=== PATIENT | male | born 1970 | race Caucasian/White ===

== ENCOUNTER 2017-05-17 10:13 | Day surgery (SDC) | payer MEDICARE, MEDICAID ==
--- NOTE | 2017-05-17 06:07 | History and Physical Report ---
DATE: 05/16/2017. CHIEF COMPLAINT AND HISTORY OF CHIEF COMPLAINT: This is a patient with a history of postlaminectomy radiculitis. He has a spinal opioid infusion system infusing hydromorphone, baclofen, and bupivacaine. Over the last refill and programmings he was identified as having battery depletion. He is here for pump battery change without infusion parameter change. PAST MEDICAL HISTORY: Noncontributory. PAST SURGICAL HISTORY: Multiple spinal surgeries. MEDICATIONS ON ADMISSION: To be provided. ALLERGIES: None. SOCIAL HISTORY: Caffeine. FAMILY HISTORY: Noncontributory. REVIEW OF SYSTEMS: The patient seems appropriate and in no acute distress. The remainder of the systems review shows glasses, degenerative arthritis. PHYSICAL EXAMINATION: General: Height is 6 feet, 1 inch. Weight is 160. Vital Signs: Unavailable. HEENT: Within normal limits. Lungs: Clear. Heart: Regular rate and rhythm. Abdomen: Nontender. Musculoskeletal: Examination of the musculoskeletal system shows the pump at the right posterior gluteal margin. The incisional site is intact. The incision for the catheter is intact. There appears to be no breakdown of the skin. Chronic pain is bilateral lower extremity radicular. Motor and sensory field evaluation shows sensory field abnormalities as well as strength abnormalities. Ambulation: No assistive device utilized. Neurologic: Cranial nerves are intact. IMPRESSION: 1. POSTLUMBAR LAMINECTOMY SYNDROME, ICD-10 CODE M96.1. 2. LUMBAR RADICULITIS, ICD-10 CODE M54.16 AND M54.17. 3. IMPLANTED SPINAL INFUSION SYSTEM WITH HYDROMORPHONE, BACLOFEN, AND BUPIVACAINE WITH BATTERY DEPLETION. PLAN: The patient is here on an outpatient basis for battery replacement. The procedure will not require an overnight stay. No changes to his infusion characteristics will be made. All of the potential risks, side effects, and complications have been reviewed and discussed. JOB NUMBER: [id number] cc: Primary Care Physician KEVIN
[~2017-05-17 10:13] MED LIST: ACETAMINOPHEN 1,000 MG/100 ML BTL IV ONE; BACLOFEN IV ONE; BUPIVACAINE HCL IV ONE; CEFAZOLIN 2 Gram 2 GM/50 ML BAG IVPB ONE; FAMOTIDINE 20MG TABLET PO ONE; HYDROMORPHONE HCL IV ONE; HYDROMORPHONE HCL/PF 0.002 MG in 0.9 % SODIUM CHLORIDE 10ML VIA 0.998 ML IVP ONE; MECLIZINE 25 MG TABLET PO ONE; METOCLOPRAMIDE 10 MG TABLET PO ONE; [UNRECOGNIZED DRUG - OTHER] IV ONE
[2017-05-17] MEDS ORDERED: PROPOFOL 10 MG/ML VIAL IV ONE (10:14)
[2017-05-17] MEDS ORDERED: LIDOCAINE 1% W/EPI 1:200,000 MPF 30ML SQ ONE (10:14)
[2017-05-17] MEDS ORDERED: FENTANYL PF 100MCG/2ML VIAL IV ONE (10:14)
[2017-05-17] MEDS ORDERED: LIDOCAINE 2% MDV (20MG/ML) 20ML VIAL IV ONE (10:14)
[2017-05-17] MEDS ORDERED: CEFAZOLIN 1G VIAL IM ONE (10:14)
[2017-05-17] MEDS ORDERED: BUPIVACAINE 0.75% W/EPI MPF 30ML VIAL IVP ONE (10:14)
[2017-05-17] MEDS ORDERED: MIDAZOLAM HCL 2MG/2ML VIAL IV ONE (10:14)
--- NOTE | 2017-05-18 09:52 | Operative Note - Ferro ---
DATE OF SURGERY: 05/17/2017. PREOPERATIVE DIAGNOSIS: 1. POSTLUMBAR LAMINECTOMY SYNDROME, ICD-10 CODE M96.1. 2. LUMBAR RADICULITIS, ICD-10 CODE M54.16 AND M54.17. 3. SPINAL OPIOID INFUSION SYSTEM WITH HYDROMORPHONE, BACLOFEN, AND BUPIVACAINE WITH BATTERY DEPLETION. POSTOPERATIVE DIAGNOSIS: 1. POSTLUMBAR LAMINECTOMY SYNDROME, ICD-10 CODE M96.1. 2. LUMBAR RADICULITIS, ICD-10 CODE M54.16 AND M54.17. 3. SPINAL OPIOID INFUSION SYSTEM WITH HYDROMORPHONE, BACLOFEN, AND BUPIVACAINE WITH BATTERY DEPLETION. OPERATION: 1. Incision, subcutaneous dissection, opening of pouch, and removal and replacement of programmable pump at right posterior gluteal margin. 2. Incision, resection, and revision of spinal catheter at pouch. 3. Interface and revise catheter to the pump. Placement of a curved 24-gauge Fields needle to the access port for the programmable pump. Aspiration and clearing the catheter of opioid and cerebrospinal fluid mixture. 4. Placement of pump into pouch, securing into the fascia with nonabsorbable suture. 5. Diagnostic myelography with radiologic supervision and interpretation confirming catheter functionality and patency. 6. Closure of incision with Vicryl for the fascia and running subcuticular Vicryl for the skin. Dermabond closure. 7. Programming of pump to original parameters with hydromorphone at 9.010 mg per day. SURGEON: Scot Puentes D.O. ANESTHESIA: Local sedation. ANESTHESIA PROVIDER: Bi Cui CRNA. INDICATION: This patient presents with a postlaminectomy radiculitis. A spinal opioid infusion system with hydromorphone, bupivacaine, and baclofen is in place. Over the last refill, battery depletion was identified. He is here for pump battery change. PROCEDURE: Intravenous line, vital sign monitoring, and intravenous sedation. Prepped and draped with sterile technique with the patient prone. The pump pouch at the right posterior gluteal margin was identified. The previous incision was infiltrated and an incision was made. Subcutaneous dissection was conducted to the pump. The pouch was opened. The Dacron sleeve was opened, and the pump was exteriorized and from the indwelling catheter. A series of three or perhaps four kinds in the catheter were identified within the pouch. The proximal portion before the kinks was identified and freed from the scar tissue. A catheter resection was then performed to remove the kinks. A new catheter component was then interfaced to the indwelling catheter by way of a connector. A new pump was placed onto the field prefilled with hydromorphone, bupivacaine, and baclofen at their same original concentrations. The revised catheter was interfaced to the pump. Antibiotic irrigation and Bovie for hemostasis. The pump was placed into the pouch and secured to the fascia with nonabsorbable suture and a pump eyelet. A 24-gauge Fields needle was inserted into the access port, having already been cleared of 1.0 mL of opioid and cerebrospinal fluid mixture. Contrast was then injected, and the resulting diagnostic myelography with radiologic supervision and interpretation showed contrast moving through the pump and catheter. No kinks, bends, or leaks were noted. The catheter tip at L1 was identified with a smooth linear flow of contrast noted confirming functionality. The Dacron sleeve was then closed with Ethibond suture, and then the incision itself was closed with Vicryl for the fascia and a running subcuticular Vicryl for the skin. Dermabond closure was placed. The pump was programmed to its original parameters at 9.010 mg of hydromorphone per day. He was transported to the recovery room stable, showing no side effects from the procedure or the sedation. When fully awake and alert, he was prepared for discharge. DISCHARGE INSTRUCTIONS: 1. The sites are to remain clean and dry. No showering or bathing in any way that would disrupt dressings. If this happens he is to contact the clinic. 2. Standard medications are to be resumed including Levaquin the antibiotic 500 mg once a day for 14 days. 3. Spinal opioid side effects including respiratory depression, nausea, vomiting, constipation, urinary retention, and rash have all been discussed and reviewed. 4. All other instructions were provided. Numbers to contact with problems were given. He was then discharged. 5. The office is to contact him within 24 to 48 hours to set up an appointment to come to the office to evaluate the sites in 5 to 7 days. Until that time his activities should stay low. JOB NUMBER: [id number] cc: Carla Irby
== END 2017-05-17 13:30 | disposition home or self-care (01) ==
LOC: SUR 10:13
PROVIDERS: ATTEND Pain Medicine Interventional Pain Medicine
DX: T85.695A Other mechanical complication of other nervous system device, implant or graft, initial encounter (principal); M96.1 Postlaminectomy syndrome, not elsewhere classified; M54.16 Radiculopathy, lumbar region; M54.17 Radiculopathy, lumbosacral region
CPT/HCPCS: 62362; 62367; 00300; Q9967; J1170; J3010; J0690; J0475; J3490